=== PATIENT | female | born 1955 | race Caucasian/White ===

== ENCOUNTER 2021-09-17 07:57 | Emergency (ER) | payer BC, OTHER ==
[~2021-09-17] VITALS: Ht 160 cm; Wt 83.9 kg
[2021-09-17] MEDS ORDERED: FLUOXETINE HCL60 MG PO (08:08)
[2021-09-17] MEDS ORDERED: TRANSDERM-SCOP1 EACH TD (11:46)
--- NOTE | 2021-09-20 17:20 | EKG ---
[facility] [address] [facility] [place], [place] [address] Signed Sinus bradycardia with 1st degree AV block Left axis deviation Abnormal ECG No previous ECGs available Confirmed by JONELLE MAGANA DO ([id number]) on 09/20/2021 5:20:01 PM Electronically Signed By: JONELLE MAGANA DO 09/20/21 1720 PATIENT NAME: RUDY JIMENEZ Electrocardiogram DATE OF : 57 PHYSICIAN: JONELLE MAGANA DO REPORT #: [id number] REPORT IS CONFIDENTIAL AND NOT TO BE RELEASED WITHOUT AUTHORIZATION
== END 2021-09-17 12:00 | disposition home or self-care (01) ==
LOC: ED 07:57
DX: R42 Dizziness and giddiness (principal); Z20.822 Contact with and (suspected) exposure to COVID-19; I10 Essential (primary) hypertension; Z79.899 Other long term (current) drug therapy
CPT/HCPCS: 93005; 93010; 99284-25; C9803; U0003